=== PATIENT | male | born 1980 | race Caucasian/White ===

== ENCOUNTER 2021-03-12 10:10 | Inpatient (IN) | payer MEDICAID, OTHER ==
[~2021-03-12] VITALS: Ht 170.2 cm; Wt 75.4 kg
[2021-03-12] MEDS ORDERED: SODIUM CHLORIDE FLUSH 10ML SYR IVF ONE (10:30)
[2021-03-12] MEDS ORDERED: SODIUM CHLORIDE 0.9% 1,000ML IVBOLUS ONE (10:30)
--- NOTE | 2021-03-12 10:45 | NUR ---
PT TO XR
[2021-03-12 10:49] LABS: BASOPHILS % (AUTO) 1 % (0-1); EOSINOPHILS % (AUTO) 0 % (1-7); LYMPHOCYTES % (AUTO) 11 % (22-44); MEAN CORPUSCULAR HEMOGLOBIN 38.9 pg (27.5-34.5); MEAN CORPUSCULAR HGB CONC 35.5 g/dL (33.2-36.2); MEAN PLATELET VOLUME 8.2 fL (7.4-10.4); MONOCYTES % (AUTO) 8 % (2-9); NEUTROPHILS % (AUTO) 80 % (42-75); PLATELET COUNT 233 x10^3/uL (130-400); RED BLOOD COUNT 3.96 x10^6/uL (4.38-5.82); RED CELL DISTRIBUTION WIDTH 14.4 % (9.4-14.8)
[2021-03-12 10:58] LABS: ALANINE AMINOTRANSFERASE 215 U/L (12-78); ALBUMIN 2.6 g/dL (3.4-5.0); ANION GAP 14 mmol/L (5-15); CALCIUM 8.7 mg/dL (8.5-10.1); CHLORIDE 86 mmol/L (98-107); CREATININE 0.57 mg/dL (0.7-1.3)
[2021-03-12] MEDS ORDERED: LIDOCAINE 1%, 10ML ONE (10:58)
[2021-03-12 11:00] LABS: ALKALINE PHOSPHATASE 289 U/L (45-117); BILIRUBIN,TOTAL 4.6 mg/dL (0.2-1.0); TOTAL PROTEIN 7.2 g/dL (6.4-8.2)
--- NOTE | 2021-03-12 11:01 | NUR ---
PT UPRIGHT ON GURNEY AWAKE & WATCHING TV, RESPONDS APPROP TO STAFF, NAD, COMFORT MEASURES PROVIDED, AT BS, CALL LIGHT WITHIN REACH.
--- NOTE | 2021-03-12 11:05 | NUR ---
US ARRIVED AT BS
[2021-03-12] MEDS ORDERED: NS + 40MEQ KCL 1,000 ML IV STA (11:33)
[2021-03-12] MEDS ORDERED: POTASSIUM CHLORIDE 20 MEQ TAB.ER.PRT ONE (11:38)
[2021-03-12] MEDS ORDERED: NS + 40MEQ KCL 1,000 ML IV ONE ×2 (11:39→12:30)
--- NOTE | 2021-03-12 11:51 | NUR ---
PT TO IR
[2021-03-12] MEDS ORDERED: POTASSIUM CHLORIDE 20 MEQ TAB.ER.PRT PO ONE ×2 (12:00→16:30)
--- NOTE | 2021-03-12 12:34 | NUR ---
PT RETURNED FROM IR, [id number] OUTPUT PER IR.
[2021-03-12] MEDS ORDERED: LORazepam 2 MG/ML, 1ML ONE (12:57)
[2021-03-12] MEDS ORDERED: LORazepam 2 MG/ML, 1ML IVPush ONE (13:00)
--- NOTE | 2021-03-12 13:18 | NUR ---
REPORT GIVEN TO CHANTALE PEREZ
[2021-03-12 14:15] VITALS: BP 115/75
[2021-03-12] MEDS ORDERED: CHLORDIAZEPOXIDE 25 MG CAPSULE PO PRN (16:00)
[2021-03-12] MEDS ORDERED: THIAMINE 200 MG in DEXTROSE 5% 50 ML IVPB ONE (16:30)
[2021-03-12] MEDS ORDERED: MAGNESIUM SULFATE PMX 2GM/50ML 50 ML IV ONE (16:30)
[2021-03-12] MEDS ORDERED: LORazepam 0.5MG TABLET PO PRN (16:30)
[2021-03-12] MEDS ORDERED: PROMETHAZINE 25 MG/ML, 1ML IM PRN (16:30)
[2021-03-12] MEDS ORDERED: ACETAMINOPHEN 325 MG TABLET PO PRN (16:30)
[2021-03-12] MEDS ORDERED: LORazepam 1MG TABLET PO PRN ×4 (16:30)
[2021-03-12] MEDS ORDERED: OXYcodone IR 5MG TABLET PO PRN (16:30)
[2021-03-12] MEDS ORDERED: ALUMINUM/MAG/SIMETHICONE 30 ML UDC PO PRN (16:30)
[2021-03-12] MEDS ORDERED: ONDANSETRON 2MG/ML, 2ML IV PRN (16:30)
[2021-03-12] MEDS: ENOXAPARIN 40 MG/0.4 ML SQ SCH (16:39)
[2021-03-12] MEDS: MVI ADULT 10 ML, FOLIC ACID 1 MG in D5%-0.45% NACL 1,000 ML IV SCH (17:06)
[2021-03-12] MEDS: CEFTRIAXONE 2 GM in DEXTROSE 5% 50 ML IVPB SCH (17:52)
[2021-03-12 20:08] VITALS: BP 114/77
[2021-03-12] MEDS: THIAMINE 100MG TABLET PO SCH (21:03)
[2021-03-12] MEDS: NICOTINE 21 MG/24 HR PATCH.TD24 TD SCH (21:12)
[2021-03-13 00:58] VITALS: BP 110/74
[2021-03-13 06:25] LABS: BASOPHILS % (AUTO) 1 % (0-1); EOSINOPHILS % (AUTO) 1 % (1-7); LYMPHOCYTES % (AUTO) 27 % (22-44); MEAN CORPUSCULAR HGB CONC 34.6 g/dL (33.2-36.2); MEAN PLATELET VOLUME 8.5 fL (7.4-10.4); MONOCYTES % (AUTO) 11 % (2-9); NEUTROPHILS % (AUTO) 60 % (42-75); PLATELET COUNT 158 x10^3/uL (130-400); RED BLOOD COUNT 3.69 x10^6/uL (4.38-5.82); RED CELL DISTRIBUTION WIDTH 14.7 % (9.4-14.8)
[2021-03-13 06:33] LABS: INTERNATIONAL NORMALIZED RATIO 1.23 (0.93-1.1)
[2021-03-13 06:40] LABS: ALBUMIN 2.2 g/dL (3.4-5.0); ANION GAP 8 mmol/L (5-15); CALCIUM 7.6 mg/dL (8.5-10.1); CHLORIDE 97 mmol/L (98-107)
[2021-03-13 06:50] LABS: % IRON SATURATION 79 % (20-55); ALANINE AMINOTRANSFERASE 173 U/L (12-78); ALKALINE PHOSPHATASE 241 U/L (45-117); CREATINE KINASE, TOTAL 94 U/L (39-308); CREATININE 0.66 mg/dL (0.7-1.3); HDL CHOLESTEROL (DIRECT) 27 mg/dL (40-60); IRON LEVEL 114 mcg/dL (65-175); TOTAL IRON BINDING CAPACITY 144 mcg/dL (250-450); TOTAL PROTEIN 6.4 g/dL (6.4-8.2)
[2021-03-13 07:00] LABS: TRIGLYCERIDES 102 mg/dL (50-200); VLDL CHOLESTEROL 20 mg/dL (0-25)
[2021-03-13 07:01] LABS: CHOLESTEROL, TOTAL 107 mg/dL (140-239); HDL CHOL % 25 % (26-37); LDL CHOLESTEROL,CALCULATED 60 mg/dL (54-169); LDL/HDL RATIO 2.2 (0.5-3.0)
[2021-03-13] MEDS: PANTOPRAZOLE 40 MG IV IVPush SCH (08:14)
[2021-03-13] MEDS: MULTIVITAMINS/MINERALS TABLET PO SCH (08:14)
[2021-03-13] MEDS: THIAMINE 100MG TABLET PO SCH ×3 (08:14→20:07)
[2021-03-13 08:20] VITALS: BP 122/80
[2021-03-13 13:24] VITALS: BP 122/79
[2021-03-13] MEDS: ENOXAPARIN 40 MG/0.4 ML SQ SCH (16:26)
[2021-03-13] MEDS: CEFTRIAXONE 2 GM in DEXTROSE 5% 50 ML IVPB SCH (17:10)
[2021-03-13] MEDS: MVI ADULT 10 ML, FOLIC ACID 1 MG in D5%-0.45% NACL 1,000 ML IV SCH (19:03)
[2021-03-13 19:18] VITALS: BP 125/80
[2021-03-13] MEDS ORDERED: POTASSIUM CHLORIDE 20 MEQ TAB.ER.PRT PO ONE (20:00)
[2021-03-13] MEDS: NICOTINE 21 MG/24 HR PATCH.TD24 TD SCH (20:07)
[2021-03-13] MEDS ORDERED: CHLORDIAZEPOXIDE 25 MG CAPSULE PO SCH (21:00)
[2021-03-13] MEDS ORDERED: DIAZEPAM 10 MG TABLET PO PRN (21:30)
[2021-03-13] MEDS ORDERED: DIAZEPAM 10 MG TABLET ONE (21:34)
[2021-03-13] MEDS: DIAZEPAM 10 MG TABLET PO SCH (21:49)
[2021-03-14 01:24] VITALS: BP 128/83
[2021-03-14 06:13] LABS: BASOPHILS % (AUTO) 1 % (0-1); EOSINOPHILS % (AUTO) 1 % (1-7); LYMPHOCYTES % (AUTO) 27 % (22-44); MEAN CORPUSCULAR HGB CONC 35.3 g/dL (33.2-36.2); MEAN PLATELET VOLUME 8.6 fL (7.4-10.4); MONOCYTES % (AUTO) 10 % (2-9); NEUTROPHILS % (AUTO) 61 % (42-75); PLATELET COUNT 134 x10^3/uL (130-400); RED BLOOD COUNT 3.35 x10^6/uL (4.38-5.82); RED CELL DISTRIBUTION WIDTH 14.4 % (9.4-14.8)
[2021-03-14 06:23] LABS: CHLORIDE 99 mmol/L (98-107)
[2021-03-14 06:34] LABS: ALANINE AMINOTRANSFERASE 126 U/L (12-78); ALBUMIN 1.8 g/dL (3.4-5.0); ALKALINE PHOSPHATASE 197 U/L (45-117); ANION GAP 8 mmol/L (5-15); BILIRUBIN,TOTAL 3.9 mg/dL (0.2-1.0); CALCIUM 7.6 mg/dL (8.5-10.1); CREATININE 0.56 mg/dL (0.7-1.3); TOTAL PROTEIN 5.7 g/dL (6.4-8.2)
[2021-03-14 06:35] VITALS: BP 100/62
[2021-03-14] MEDS: PANTOPRAZOLE 40 MG IV IVPush SCH (08:43)
[2021-03-14] MEDS: THIAMINE 100MG TABLET PO SCH ×3 (08:43→20:16)
[2021-03-14] MEDS: DIAZEPAM 10 MG TABLET PO SCH ×2 (08:43→16:22)
[2021-03-14] MEDS: MULTIVITAMINS/MINERALS TABLET PO SCH (08:43)
[2021-03-14 14:26] VITALS: BP 114/77
[2021-03-14] MEDS: ENOXAPARIN 40 MG/0.4 ML SQ SCH (16:22)
[2021-03-14] MEDS: CEFTRIAXONE 2 GM in DEXTROSE 5% 50 ML IVPB SCH (17:24)
[2021-03-14] MEDS: MVI ADULT 10 ML, FOLIC ACID 1 MG in D5%-0.45% NACL 1,000 ML IV SCH (17:25)
[2021-03-14] MEDS: POTASSIUM CHLORIDE 20 MEQ TAB.ER.PRT PO SCH (18:19)
[2021-03-14] MEDS: NICOTINE 21 MG/24 HR PATCH.TD24 TD SCH (20:16)
[2021-03-14 20:54] VITALS: BP 94/67
[2021-03-15 00:30] VITALS: BP 110/73
[2021-03-15] MEDS: POTASSIUM CHLORIDE 20 MEQ TAB.ER.PRT PO SCH ×2 (00:36→05:04)
[2021-03-15 04:57] LABS: BASOPHILS % (AUTO) 1 % (0-1); EOSINOPHILS % (AUTO) 1 % (1-7); LYMPHOCYTES % (AUTO) 24 % (22-44); MEAN CORPUSCULAR HGB CONC 34.8 g/dL (33.2-36.2); MEAN PLATELET VOLUME 8.4 fL (7.4-10.4); MONOCYTES % (AUTO) 10 % (2-9); NEUTROPHILS % (AUTO) 64 % (42-75); PLATELET COUNT 149 x10^3/uL (130-400); RED BLOOD COUNT 3.34 x10^6/uL (4.38-5.82); RED CELL DISTRIBUTION WIDTH 14.5 % (9.4-14.8)
[2021-03-15 05:12] LABS: ALANINE AMINOTRANSFERASE 121 U/L (12-78); ALBUMIN 1.7 g/dL (3.4-5.0); ANION GAP 7 mmol/L (5-15); CHLORIDE 101 mmol/L (98-107); CREATININE 0.63 mg/dL (0.7-1.3)
[2021-03-15 05:14] LABS: ALKALINE PHOSPHATASE 194 U/L (45-117); BILIRUBIN,TOTAL 2.6 mg/dL (0.2-1.0); TOTAL PROTEIN 5.7 g/dL (6.4-8.2)
[2021-03-15] MEDS ORDERED: PANTOPRAZOLE 40MG TABLET PO SCH (06:00)
[2021-03-15 07:02] VITALS: BP 92/58
[2021-03-15] MEDS: ALBUMIN HUMAN 25% 100 ML IV SCH ×3 (07:54→13:32)
[2021-03-15] MEDS: THIAMINE 100MG TABLET PO SCH (07:54)
[2021-03-15] MEDS: MULTIVITAMINS/MINERALS TABLET PO SCH (07:54)
[2021-03-15] MEDS ORDERED: FUROSEMIDE 40 MG TABLET PO SCH (08:00)
[2021-03-15] MEDS ORDERED: LIDOCAINE 1%, 10ML ONE (08:36)
[2021-03-15] MEDS ORDERED: FOLIC ACID 1 MG TABLET PO SCH (09:00)
[2021-03-15] MEDS ORDERED: SPIRONOLACTONE 50 MG TABLET PO SCH (09:00)
[2021-03-15 10:22] VITALS: BP 106/78
[2021-03-15] MEDS ORDERED: FOLI1TAB32 PO (13:58)
[2021-03-15] MEDS ORDERED: SPIR100T PO (13:58)
[2021-03-15] MEDS ORDERED: THIA100T67 PO (13:58)
[2021-03-15] MEDS ORDERED: FURO40TA6 PO (13:58)
[2021-03-15] MEDS ORDERED: MULT-482 PO (13:58)
[2021-03-15 14:02] VITALS: BP 89/66
== END 2021-03-15 15:12 | disposition home or self-care (01) | DRG 871 ==
LOC: ED 12:31 → SUATTDRO 13:30 → ORIP 13:34 → 4EST 14:00
PROVIDERS: ADMIT Internal Medicine; ATTEND Internal Medicine
PROC: 0W9G3ZZ Drainage of Peritoneal Cavity, Percutaneous Approach (ICD-10-PCS; principal; 2021-03-12)
PROC: BD42ZZZ Ultrasonography of Stomach (ICD-10-PCS; 2021-03-12)
PROC: 0W9G3ZZ Drainage of Peritoneal Cavity, Percutaneous Approach (ICD-10-PCS; 2021-03-15)
PROC: BD42ZZZ Ultrasonography of Stomach (ICD-10-PCS; 2021-03-15)
DX: A41.9 Sepsis, unspecified organism (principal); K65.2 Spontaneous bacterial peritonitis; E87.1 Hypo-osmolality and hyponatremia; F10.239 Alcohol dependence with withdrawal, unspecified; K76.6 Portal hypertension; D75.89 Other specified diseases of blood and blood-forming organs; E87.6 Hypokalemia; E88.09 Other disorders of plasma-protein metabolism, not elsewhere classified; F10.229 Alcohol dependence with intoxication, unspecified; F12.90 Cannabis use, unspecified, uncomplicated; F17.210 Nicotine dependence, cigarettes, uncomplicated; K70.11 Alcoholic hepatitis with ascites; K74.60 Unspecified cirrhosis of liver; Z82.49 Family history of ischemic heart disease and other diseases of the circulatory system
CPT/HCPCS: 36415; 74022; 82042; 89051; 96374; 99285; J3490; 49083; 76700; 80053; 80061; 80074; 80320; 82140; 82550; 82607; 83540; 83550; 83605; 83690; 83735; 84100; 84157; 84443; 85025; 85610; 87040; 93005; G0378; J0696; J1650; J3411; P9047; C9113; G0480; J2060; J3475; J3480; J7030